=== PATIENT | female | born 1950 | race Two or more races ===

== ENCOUNTER 2020-02-29 05:44 | Emergency (ER) | payer BC ==
[~2020-02-29] VITALS: Ht 149.9 cm; Wt 77.0 kg
--- NOTE | 2020-02-29 07:28 | PHYS DOC ---
Past Medical History Past Medical History: Other Additional Past Medical Histor: UTERINE CANCER Past Surgical History: No Surgical History Smoking Status: Never Smoker Alcohol Use: None General Adult EDM: Chief Complaint: PAIN ON URINATION HPI: HPI: History obtained from the patient. Patient is a 69-year-old female with a history of uterine cancer who presents with suprapubic abdominal discomfort over the past 2 days. She notes she was originally diagnosed with uterine cancer 8 years ago and did have a hysterectomy. She states she was diagnosed with uterine cancer again 2 years ago. She does receive chemotherapy every 3 weeks and last received treatment 2 weeks ago at [facility]. She does note 3 episodes of nonbloody nonbilious emesis overnight. She does note some increased urge to void. Denies any dysuria or hematuria. Denies any recent antibiotics. Denies syncope. Denies any other previous abdominal surgeries. D oes note some mild right lower back pain that is somewhat new. Is any midline pain. Denies chest pain or shortness of breath. Denies fevers or cough. Has not taken any medication at home to help with her symptoms. States the pain is aching in nature and relatively constant. States she was eating and drinking well 2 days ago but last night cannot keep any food down. Denies vaginal bleeding or discharge. Denies changes to her stool caliber or consistency. No other complaints. Review of Systems: Review of Systems: Constitutional: Denies fever or chills. [] Eyes: Denies change in visual acuity. [] HENT: Denies nasal congestion or sore throat. [] Respiratory: Denies cough or shortness of breath. [] Cardiovascular: Denies chest pain or edema. [] GI: Positive for abdominal pain and vomiting : Increased urge to void Musculoskeletal: Denies back pain or joint pain. [] Integument: Denies rash. [] Neurologic: Denies headache, focal weakness or sensory changes. [] Endocrine: Denies polyuria or polydipsia. [] Lymphatic: Denies swollen glands. [] Psychiatric: Denies depression or anxiety. [] Heart Score: Risk Factors: Risk Factors: DM, Current or recent (<one month) smoker, HTN, HLP, family history of CAD, obesity. Risk Scores: Score 0 - 3: 2.5% MACE over next 6 weeks - Discharge Home Score 4 - 6: 20.3% MACE over next 6 weeks - Admit for Clinical Observation Score 7 - 10: 72.7% MACE over next 6 weeks - Early Invasive Strategies Allergies: Allergies: Allergies Coded Allergies Type Severity Reaction Last Updated Verified doxycycline Allergy Intermediate 02/29/20 Yes Physical Exam: PE: Constitutional: Well developed, well nourished, no acute distress, non-toxic appearance. [] HENT: Normocephalic, atraumatic, bilateral external ears normal, oropharynx moist, no oral exudates, nose normal. [] Eyes: PERRLA, EOMI, conjunctiva normal, no discharge. [] Neck: Normal range of motion, no tenderness, supple, no stridor. [] Cardiovascular:Heart rate regular rhythm, no murmur [] Lungs & Thorax: Bilateral breath sounds clear to auscultation [] Abdomen: Mild right lower quadrant tenderness to palpation. No involuntary guarding or rigidity noted. No acute peritonitis. Skin: Warm, dry, no erythema, no rash. [] Back: No tenderness, no CVA tenderness. [] Extremities: No tenderness, no cyanosis, no clubbing, ROM intact, no edema. [] Neurologic: Alert and oriented X 3, normal motor function, normal sensory function, no focal deficits noted. [] Psychologic: Affect normal, judgement normal, mood normal. [] Current Patient Data: Labs: Laboratory Tests Test 02/29/20 07:40 02/29/20 07:50 White Blood Count 7.0 x10^3/uL Red Blood Count 4.04 x10^6/uL Hemoglobin 10.7 g/dL Hematocrit 33.1 % Mean Corpuscular Volume 82 fL Mean Corpuscular Hemoglobin 27 pg Mean Corpuscular Hemoglobin Concent 32 g/dL Red Cell Distribution Width 19.3 % Platelet Count 365 x10^3/uL Neutrophils (%) (Auto) 71 % Lymphocytes (%) (Auto) 20 % Monocytes (%) (Auto) 8 % Eosinophils (%) (Auto) 1 % Basophils (%) (Auto) 1 % Neutrophils # (Auto) 5.0 x10^3/uL Lymphocytes # (Auto) 1.4 x10^3/uL Monocytes # (Auto) 0.5 x10^3/uL Eosinophils # (Auto) 0.0 x10^3/uL Basophils # (Auto) 0.1 x10^3/uL Sodium Level 131 mmol/L Potassium Level 4.0 mmol/L Chloride Level 95 mmol/L Carbon Dioxide Level 24 mmol/L Anion Gap 12 Blood Urea Nitrogen 20 mg/dL Creatinine 1.4 mg/dL Estimated GFR (Cockcroft-Gault) 37.3 Glucose Level 147 mg/dL Calcium Level 9.3 mg/dL Urine Collection Type Unknown Urine Color Yellow Urine Clarity Cloudy Urine pH 5.0 Urine Specific [place] >=1.030 Urine Protein >=300 mg/dL Urine Glucose (UA) Negative mg/dL Urine Ketones (Stick) Trace mg/dL Urine Blood Negative Urine Nitrite Negative Urine Bilirubin Small Urine Urobilinogen Dipstick 1.0 mg/dL Urine Leukocyte Esterase Small Urine RBC Occ /HPF Urine WBC 5-10 /HPF Urine Squamous Epithelial Cells Mod /LPF Urine Bacteria Many /HPF Urine Mucus Slight /LPF Current Medications Medications (Trade) Dose Ordered Sig/Janet Route PRN Reason Start Time Stop Time Status Last Admin Dose Admin Morphine Sulfate (Morphine Sulfate) 4 mg 1X ONCE IV 02/29/20 07:30 02/29/20 07:31 DC 02/29/20 08:05 Ondansetron HCl (Zofran) 4 mg 1X ONCE IVP 02/29/20 07:30 02/29/20 07:31 DC 02/29/20 08:05 Sodium Chloride 1,000 ml @ 1,000 mls/hr 1X ONCE IV 02/29/20 08:00 02/29/20 08:59 DC 02/29/20 08:06 Iohexol (Omnipaque 300 Mg/ml) 60 ml 1X ONCE IV 02/29/20 08:30 02/29/20 08:32 DC 02/29/20 08:45 Info (CONTRAST GIVEN -- Rx MONITORING) 1 each PRN DAILY PRN MC SEE COMMENTS 02/29/20 08:45 03/02/20 08:44 Cefazolin Sodium (Ancef) 1 gm 1X ONCE IVP 02/29/20 09:15 02/29/20 09:32 DC Vital Signs: Vital Signs Date Time Temp Pulse Resp B/P (MAP) Pulse Ox O2 Delivery O2 Flow Rate FiO2 02/29/20 06:10 98.3 114 18 121/85 (97) 98 Room Air 98.3 EKG: EKG: [] Radiology/Procedures: Radiology/Procedures: [facility] [address] [place] [address] IMAGING REPORT Signed PATIENT: VINAY AVILA ACCOUNT: [id number] : 1950 LOCATION: ER AGE: 69 SEX: F EXAM STATUS: REG ER ORD. PHYSICIAN: XIOMARA PUENTE DO REASON: lower abdominal pain. hx uterine CA PROCEDURE: CT ABD PELV W/ IV CONTRST ONLY CT study of the abdomen and pelvis with contrast Clinical indications: Lower abdominal pain. History of uterine cancer. TECHNIQUE: After IV infusion of 60 cc of Omnipaque 300, helical CT scanning of the abdomen and pelvis was performed. GI contrast was not administered. This may decrease the sensitivity to detect GI tract pathology. PQRS COMPLIANCE STATEMENT One or more of the following individualized dose reduction techniques were utilized for this study: 1. Automated exposure control 2. Adjustment of the mA and/or kV according to patient size 3. Use of iterative reconstruction technique COMPARISON: None available. FINDINGS: The liver and spleen and pancreas and gallbladder are normal. No extra hepatic biliary ductal dilatation is seen. No adrenal mass is seen. No adrenal mass is evident. There is severe right-sided hydronephrosis and proximal right hydroureter down to the right iliac crest. This is secondary to retroperitoneal soft tissue mass which extends down along the IVC to the iliac vessels into the right internal and external iliac chain. This is consistent with a large mantle of retroperitoneal and pelvic lymphadenopathy. This mass measures 15 cm in vertical dimension and 10.1 cm in transverse dimension and 10.1 cm in AP dimension. This encircles and narrows the right internal and external iliac arteries. IVC filter is apparent. No focal aneurysmal dilatation of the abdominal aorta is seen. There are additional smaller retroperitoneal lymph nodes posterior to the IVC and on the left side of the abdominal aorta and left common iliac artery. These lymph nodes measure 19 mm and 14 mm and 15 mm respectively. Right inguinal lymphadenopathy is seen and the largest lymph node node measures 18 mm. Urinary bladder is not abnormally distended. Uterus is surgically absent. Sigmoid diverticulosis is seen without diverticulitis. No obstructive bowel pattern is evident. There is a small amount of presacral fluid present. No intraperitoneal fluid or free intraperitoneal air is seen. No lung base consolidation is evident. Old healed posterior 10th rib fracture is seen. No lytic process is seen. IMPRESSION: Severe right-sided hydronephrosis and proximal right hydroureter is seen secondary to obstruction from a large retroperitoneal soft tissue mass. Additional retroperitoneal and pelvic lymphadenopathy is seen. The finding may represent metastatic lymphadenopathy given history of uterine cancer or could represent lymphoma. IVC filter is in place. There is decreased enhancement of the lower IVC inferior to the IVC filter which may be due to thrombosis. There is narrowing of the right internal and external iliac arteries due to encasement of these vessels by the retroperitoneal soft tissue mass. Electronically signed by: Delia Mckeon MD (02/29/2020 9:26 AM) [id number] DICTATED and SIGNED BY: DELIA MCKEON MD DATE: 02/29/20925 [] Course & Med Decision Making: Course & Med Decision Making Pertinent Labs and Imaging studies reviewed. (See chart for details) [] Patient is a 69-year-old female with a history of known uterine cancer current receiving chemotherapy treatment at [facility] who presents with chief complaint of right lower back pain with increased urge to void. Initial vital signs grossly unremarkable. Urinalysis does show some evidence of infection. Significant proteinuria present. Creatinine 1.4. Unclear baseline. CT imaging was obtained given her history of cancer. It does show significant hydronephrosis of the right ureter with near obstructing right retroperitoneal mass. Unclear whether this is a new finding or chronic in nature. I did discuss results in great detail with the patient. I did recommend transfer to [facility] where her urologic and oncology teams are located. I do feel the patient would be best served to be transferred to the facility that manages her current cancer as well as treatment for pot ential pyelonephritis. We did initially contact [facility] however they do not have any available beds at this time. Unfortunately she cannot stay here due to the fact that we do not have urologic services. Patient was ultimately accepted by at [facility]. Patient is agreeable to this. She did remain hemodynamically stable while in our emergency department. Dragon Disclaimer: Dragon Disclaimer: This electronic medical record was generated, in whole or in part, using a voice recognition dictation system. Departure Departure Impression: Primary Impression: Uterine cancer Qualified Codes: C55 - Malignant neoplasm of uterus, part unspecified Additional Impressions: Abdominal mass Qualified Codes: R19.00 - Intra-abdominal and pelvic swelling, mass and lump, unspecified site ABHIJIT (acute kidney injury) Pyelonephritis Disposition: 02 DC/TRF OTHER SHORT TERM HOS Condition: STABLE Referrals: GAYE HOWELL DO (PCP) Patient Instructions: Pyelonephritis, Adult Additional Instructions: Please follow-up with your oncologist and urologist as soon as possible. Please return to to the emergency department at any point should he want to be reevaluated. Scripts Ondansetron Hcl (ZOFRAN) 4 Mg Tablet 4 MG PO PRN TID PRN for NAUSEA, #15 nausea/vomiting Prov: XIOMARA PUENTE DO 02/29/20 Cefpodoxime Proxetil (CEFPODOXIME PROXETIL) 200 Mg Tablet 1 TAB PO BID for 14 Days, #28 TAB Prov: XIOMARA PUENTE DO 02/29/20 XIOMARA PUENTE DO Feb 29, 2020 07:28
[2020-02-29] MEDS ORDERED: MORPHINE SULFATE 4 MG/ML VIAL. IV ONE (07:30)
[2020-02-29] MEDS ORDERED: ONDANSETRON PF 4 MG/2 ML VIAL. IVP ONE (07:30)
[2020-02-29 08:00] LABS: BILIRUBIN,URINE SMALL (NEG); CLARITY,URINE CLOUDY; COLOR,URINE YELLOW; NITRITE,URINE NEGATIVE (NEG); PROTEIN,URINE >=300 mg/dL (NEG-TRACE)
[2020-02-29] MEDS ORDERED: IV NORMAL SALINE 1000ML BAG 1,000 ML IV ONE (08:00)
[2020-02-29 08:02] LABS: BASO # 0.1 x10^3/uL (0.0-0.2); BASO % 1 % (0-3); EOS % 1 % (0-3); HEMATOCRIT 33.1 % (36.0-47.0); HEMOGLOBIN 10.7 g/dL (12.0-15.5); LYMPH # 1.4 x10^3/uL (1.0-4.8); LYMPH % 20 % (24-48); MEAN CORPUSCULAR HEMOGLOBIN 27 pg (25-35); MEAN CORPUSCULAR HGB CONC 32 g/dL (31-37); MEAN CORPUSCULAR VOLUME 82 fL (79-100); MONO # 0.5 x10^3/uL (0.0-1.1); MONO % 8 % (0-9); NEUT % 71 % (31-73); PLATELET COUNT 365 x10^3/uL (140-400); RED BLOOD COUNT 4.04 x10^6/uL (3.50-5.40); RED CELL DISTRIBUTION WIDTH 19.3 % (11.5-14.5)
[2020-02-29 08:03] LABS: CALCIUM 9.3 mg/dL (8.5-10.1); CREATININE 1.4 mg/dL (0.6-1.0); GFR 37.3
[2020-02-29 08:17] LABS: BACTERIA,URINE MANY /HPF (0-FEW); RBC,URINE OCC /HPF (0-2)
[2020-02-29] MEDS ORDERED: IOHEXOL 300 MG/ML 100ML VIAL. IV ONE (08:30)
[2020-02-29] MEDS ORDERED: CONTRAST GIVEN. MC PRN (08:45)
[2020-02-29] MEDS ORDERED: ceFAZolin SODIUM IV Push 1 GM VIAL. IVP ONE (09:15)
--- NOTE | 2020-02-29 09:29 | RAD ---
CT study of the abdomen and pelvis with contrast Clinical indications: Lower abdominal pain. History of uterine cancer. TECHNIQUE: After IV infusion of 60 cc of Omnipaque 300, helical CT scanning of the abdomen and pelvis was performed. GI contrast was not administered. This may decrease the sensitivity to detect GI tract pathology. PQRS COMPLIANCE STATEMENT One or more of the following individualized dose reduction techniques were utilized for this study: 1. Automated exposure control 2. Adjustment of the mA and/or kV according to patient size 3. Use of iterative reconstruction technique COMPARISON: None available. FINDINGS: The liver and spleen and pancreas and gallbladder are normal. No extra hepatic biliary ductal dilatation is seen. No adrenal mass is seen. No adrenal mass is evident. There is severe right-sided hydronephrosis and proximal right hydroureter down to the right iliac crest. This is secondary to retroperitoneal soft tissue mass which extends down along the IVC to the iliac vessels into the right internal and external iliac chain. This is consistent with a large mantle of retroperitoneal and pelvic lymphadenopathy. This mass measures 15 cm in vertical dimension and 10.1 cm in transverse dimension and 10.1 cm in AP dimension. This encircles and narrows the right internal and external iliac arteries. IVC filter is apparent. No focal aneurysmal dilatation of the abdominal aorta is seen. There are additional smaller retroperitoneal lymph nodes posterior to the IVC and on the left side of the abdominal aorta and left common iliac artery. These lymph nodes measure 19 mm and 14 mm and 15 mm respectively. Right inguinal lymphadenopathy is seen and the largest lymph node node measures 18 mm. Urinary bladder is not abnormally distended. Uterus is surgically absent. Sigmoid diverticulosis is seen without diverticulitis. No obstructive bowel pattern is evident. There is a small amount of presacral fluid present. No intraperitoneal fluid or free intraperitoneal air is seen. No lung base consolidation is evident. Old healed posterior 10th rib fracture is seen. No lytic process is seen. IMPRESSION: Severe right-sided hydronephrosis and proximal right hydroureter is seen secondary to obstruction from a large retroperitoneal soft tissue mass. Additional retroperitoneal and pelvic lymphadenopathy is seen. The finding may represent metastatic lymphadenopathy given history of uterine cancer or could represent lymphoma. IVC filter is in place. There is decreased enhancement of the lower IVC inferior to the IVC filter which may be due to thrombosis. There is narrowing of the right internal and external iliac arteries due to encasement of these vessels by the retroperitoneal soft tissue mass. Electronically signed by: López Mckeon MD (02/29/2020 9:26 AM) [id number]
[2020-02-29] MEDS ORDERED: CEFP200T PO (09:46)
[2020-02-29] MEDS ORDERED: ONDA4TAB7 PO (09:46)
[2020-02-29 11:45] VITALS: BP 135/88
== END 2020-02-29 12:56 | disposition left against medical advice (07) ==
LOC: ER 05:44
DX: C55 Malignant neoplasm of uterus, part unspecified (principal); R19.00 Intra-abdominal and pelvic swelling, mass and lump, unspecified site; N17.9 Acute kidney failure, unspecified; N12 Tubulo-interstitial nephritis, not specified as acute or chronic; M54.5 Low back pain; R11.2 Nausea with vomiting, unspecified; Z88.1 Allergy status to other antibiotic agents; Z90.710 Acquired absence of both cervix and uterus
CPT/HCPCS: 36415; 74177; 80048; 81001; 85025; 87086; 96361; 96374; 96375; 99285; J0690; J2270; J2405; J7030; Q9967